=== PATIENT | female | born 1985 | race Hispanic/Latino ===

== ENCOUNTER 2017-03-03 12:01 | Emergency (ER) | payer BC ==
[2017-03-03 12:20] VITALS: BMI 39.8
[2017-03-03 12:54] LABS: BASO % 0.2 % (0.0-2.0); EOS % 0.3 % (0.0-4.0); HEMATOCRIT 33.1 % (34.0-47.0); LYMPH # 1.7 K/uL (1.0-4.3); LYMPH % 18.8 % (20.0-40.0); MEAN CELL VOLUME 87.6 fl (81.0-99.0); MEAN CORPUSCULAR HGB CONC 33.1 g/dL (33.0-37.0); MEAN PLATELET VOLUME 10.1 fl (7.2-11.7); MONO # 0.6 K/uL (0.0-0.8); MONO % 6.3 % (0.0-10.0); NEUT # 6.9 K/uL (1.8-7.0); NEUT % 74.4 % (50.0-75.0); NRBC % 0.1 % (0.0-0.0); RED CELL DISTRIBUTION WIDTH 13.9 % (11.5-14.5); WHITE BLOOD COUNT 9.2 K/uL (4.8-10.8)
--- NOTE | 2017-03-03 13:03 | OBHP ---
Datetime: 03/03/2017 12:20 IP Adm Impression: Term, intrauterine ; No Active Labor IP Admit Plan: Observation/Evaluation Admit Comment, IP Provider: 32yo G [id number] IUP at 37+w sent by PMD Dr Love for elevated BP. + swelling lower extremities. No WISDOM; no epigatrsic pain No CTX; no VB; +FM PNC: CP - APPT today 159/92 and last week 155/90 GBS+ PMH: denies PSH: elba NKA POBGYNH: no STD; spont Ab x 1 A: IUP at 37w 1wk Elevate BP GBS+ PLAN: check UA and pre-eclampis labs; monitor BP Pelvic Type - PN: Adequate Extremities - PN: Abnormal Abdomen - PN: Normal Back - PN: Normal Breast - PN: Not Done Lungs - PN: Normal Heart - PN: Normal Thyroid - PN: Normal Neurologic - PN: Normal HEENT - PN: Normal General - PN: Normal Presentation-Admit: Vertex IP Fetus A Comments: sono cephalic FHR - Baseline A Provider: 140 Comments, ACOG Physical Exam: ROS: General: no weakness; no fatigue HEENT: no WISDOM; no visual dist CV: no palpitations; no no CP GI: no N/V no diarhea : no F/U/D MS: No joint pain; + pedal edema IP Hx Assessment: The History has been Reviewed and is Current Vital Signs Provider: Reviewed; Within Normal Limits IP Chief Complaint: Signs/Symptoms Gestational HTN NICHD Variability Prov Fetus A: Moderate 6-25bpm NICHD Accel Fetus A IP Provider: 15X15 FHR Category Provider Fetus A: Category I NICHD Decel Fetus A IP Provider: None Genitourinary Exam: Normal DTRs - PN: Normal
[2017-03-03 13:19] LABS: ALB/GLOB RATIO 1.1 (1.0-2.1); ALKALINE PHOSPHATASE 184 U/L (38-126); ALT/SGPT 28 U/L (9-52); AST/SGOT 28 U/L (14-36); BILIRUBIN,TOTAL 0.4 mg/dl (0.2-1.3); BLOOD UREA NITROGEN 9 mg/dl (7-17); CALCIUM 9.7 mg/dL (8.4-10.2); CARBON DIOXIDE 21 mmol/L (22-30); CHLORIDE 107 mmol/L (98-107); GFR AFRICAN-AMERICAN > 60; GLUCOSE,RANDOM 91 mg/dL (65-105); POTASSIUM 4.3 MMOL/L (3.6-5.0); SODIUM 141 mmol/l (132-148); TOTAL PROTEIN 6.8 G/DL (6.3-8.2); URIC ACID 4.4 mg/Dl (2.2-7.5)
[2017-03-03 13:50] LABS: RBC URINE 3 /hpf (0-3); URINE BACTERIA RARE (<OCC); URINE BILIRUBIN NEGATIVE (NEGATIVE); URINE BLOOD NEGATIVE (NEGATIVE); URINE COLOR YELLOW (YELLOW); URINE GLUCOSE (UA) NEG (Normal); URINE KETONE NEGATIVE (NEGATIVE); URINE LEUKOCYTE ESTERASE MOD Leu/uL (Negative); URINE PROTEIN NEGATIVE (NEGATIVE); URINE UROBILINOGEN 0.2-1.0 mg/dL (0.2-1.0); WBC URINE 7 /hpf (0-5)
--- NOTE | 2017-03-03 15:37 | OBDCSUM ---
Datetime: 03/03/2017 15:01 Discharged to, Provider: Home Follow up at, Provider: in L_D Disch Instr Activity: Normal activity Disch Instr Diet: Regular Discharge Instructions, Provider: Specific instructions as noted Discharge Time: 03/03/2017 15:00 Follow up in weeks, Provider: 03-04-17 Disch Referrals: None Discharge Instruct Comment, Prov: pre-eclampsia warning Contraception discussed, Prov: Yes Discharge Comment, Provider: collect 24h urine...come back tmrw for BP check. Discharge Diagnosis Prov Other: Elevated BP
--- NOTE | 2017-03-03 15:37 | OBHP ---
Datetime: 03/03/2017 15:00 Admit Comment, IP Provider: Labs and BP rev'd...BP improved from earlier. N osigns of pre-eclampsia PLAN: discussion with pt. 24h urine collection; pre-eclampsia warning; came with mother and will be staying with her in . Her is flying in from a wedding tonight. Her questions answered.
== END 2017-03-03 15:20 | disposition home or self-care (01) ==
LOC: H.EROB2 12:01
DX: O47.03 False labor before 37 completed weeks of gestation, third trimester (principal); Z3A.37 37 weeks gestation of pregnancy; O13.3 Gestational [pregnancy-induced] hypertension without significant proteinuria, third trimester

== ENCOUNTER 2017-03-04 18:11 | Emergency (ER) | payer BC ==
[2017-03-03 12:20] VITALS: BMI 39.8
--- NOTE | 2017-03-04 19:07 | OBHP ---
Datetime: 03/04/2017 18:58 IP Adm Impression: Term, intrauterine IP Chief Complaint Other: elevated BP IP Admit Plan: Observation/Evaluation Admit Comment, IP Provider: 32yo G [id number] IUP at 37+w Hx elevated BP. She was seen yesterday at Dr Arboleda's office and sent in. She had BP which were WNL. + swelling lower extremities. No WISDOM; no e pigatrsic pain; No CTX; no VB; +FM PNC: CP - APPT yesterday 159/92 and last week 155/90 GBS+ PMH: denies PSH: elba NKA POBGYNH: no STD; spont Ab x 1 A: IUP at 37w+ Elevate BP GBS+ PLAN: 24h collection brady in and will check for pr/Cr/Cr clearance; monitor BP Pelvic Type - PN: Adequate Extremities - PN: Normal Abdomen - PN: Normal Back - PN: Normal Breast - PN: Not Done Lungs - PN: Normal Heart - PN: Normal Thyroid - PN: Normal Neurologic - PN: Normal HEENT - PN: Normal General - PN: Normal IP Hx Assessment: The History has been Reviewed and is Current Vital Signs Provider: Reviewed Genitourinary Exam: Normal DTRs - PN: Normal
[2017-03-05 02:52] VITALS: BP 129/82; PULSE 88; RESP 16; TEMP 98.6
--- NOTE | 2017-03-05 20:23 | OBHP ---
Datetime: 03/04/2017 20:16 IP Adm Impression: Term, intrauterine ; No Active Labor IP Admit Plan: Observation/Evaluation; Discharge home Admit Comment, IP Provider: 32-year-old at 37 weeks and 2 days gestational age presented to OB ED with 24-hour urine collection and for observation of blood pressure. Patient without complaints a t this time. Patient's 24-hour urine sent to laboratory. Urine volume only 600 mL. I discussed this w ith patient, and patient reported that she did not collect all of her urine over the 24-hour period. I discussed with patient importance of this test. And recommended for patient to complete 24-hour uri ne. Patient was observed here at OB ED and was found to be normotensive today. Patient discharged yoko e with labor precautions as well as preeclamptic precautions. Patient will return to OB ED tomorrow w ith 24-hour urine collection for evaluation. Past medical history none Past surgical history none Medications vitamins No known drug allergies Obstetrical history Social history no tobacco, no alcohol, no drugs. Assessment: 32-year-old at 37 weeks gestational age with possible gestational hypertension. Patient stab le at this time. All being inferior wall being reassuring at this time. Plan: Patient given instructions on 24-hour urine collection. Patient will return to OB ED tomorrow with 24-hour urine collection for evaluation. EGA AdmitDate IP: 37.1 Vital Signs Provider: Reviewed; Within Normal Limits IP Chief Complaint: Other
== END 2017-03-04 22:45 | disposition home or self-care (01) ==
LOC: H.EROB2 18:11
DX: O47.1 False labor at or after 37 completed weeks of gestation (principal); Z3A.37 37 weeks gestation of pregnancy

== ENCOUNTER 2017-03-06 10:10 | Emergency (ER) | payer BC ==
--- NOTE | 2017-03-06 13:00 | OBHP ---
Datetime: 03/06/2017 11:18 Admit Comment, IP Provider: 32yo G [id number] IUP at 37.3 w/ Hx elevated [id number] observed at appt las t week. She presents today for submission of 24hr urine. + swelling lower extremities. No WISDOM/scoto rahman/va disturbances; no epigatrsic/ruq pain; No CTX; no VB; +FM PNC: CP with dr ford. GBS+ PMH: denies PSH: elba NKA POBGYNH: no STD; spont Ab x 1 A: IUP at 37.3wks Elevate BP P: 24hr urine Addendum: 24 hour urine results discussed with Dr. Carroll The patient home Follow up Monday with Dr. Cuellar as scheduled Preeclamptic precautions kick counts preeclamptic precautions next few Extremities - PN: Normal Abdomen - PN: Normal Back - PN: Normal Lungs - PN: Normal Heart - PN: Normal Neurologic - PN: Normal HEENT - PN: Normal Comments, ACOG Physical Exam: 24 hour urine has 418 mg of protein Genitourinary Exam: Normal Datetime: 03/04/2017 20:16 EGA AdmitDate IP: 37.1
[2017-03-06 16:55] VITALS: BP 133/84; PULSE 91; TEMP 98; O2SAT 100
== END 2017-03-06 12:48 | disposition home or self-care (01) ==
LOC: H.EROB2 10:10 → H.EROB 10:10 → H.EROB2 12:48
DX: O13.3 Gestational [pregnancy-induced] hypertension without significant proteinuria, third trimester (principal); Z3A.37 37 weeks gestation of pregnancy

== ENCOUNTER 2017-03-10 16:32 | Inpatient (IN) | payer BC ==
[2017-03-10 18:14] VITALS: BMI 39.4
[2017-03-10] MEDS ORDERED: Lactated Ringer's 500 ML IV SCH (18:45)
[2017-03-10 19:17] LABS: BASO % 0.1 % (0.0-2.0); EOS % 0.4 % (0.0-4.0); HEMATOCRIT 30.9 % (34.0-47.0); LYMPH % 23.1 % (20.0-40.0); MEAN CELL VOLUME 87.3 fl (81.0-99.0); MEAN CORPUSCULAR HEMOGLOBIN 28.6 pg (27.0-31.0); MEAN CORPUSCULAR HGB CONC 32.7 g/dL (33.0-37.0); MEAN PLATELET VOLUME 11.1 fl (7.2-11.7); MONO # 0.7 K/uL (0.0-0.8); NEUT % 68.4 % (50.0-75.0); NRBC % 0.2 % (0.0-0.0); RED CELL DISTRIBUTION WIDTH 14.2 % (11.5-14.5); WHITE BLOOD COUNT 8.8 K/uL (4.8-10.8)
[2017-03-10 19:25] LABS: RBC URINE 3 /hpf (0-3); URINE BACTERIA RARE (<OCC); URINE BILIRUBIN NEGATIVE (NEGATIVE); URINE BLOOD NEGATIVE (NEGATIVE); URINE COLOR YELLOW (YELLOW); URINE GLUCOSE (UA) NEG (Normal); URINE KETONE NEGATIVE (NEGATIVE); URINE LEUKOCYTE ESTERASE MOD Leu/uL (Negative); URINE PROTEIN NEGATIVE (NEGATIVE); URINE UROBILINOGEN 0.2-1.0 mg/dL (0.2-1.0)
[2017-03-10 19:47] LABS: ALB/GLOB RATIO 1.1 (1.0-2.1); ALKALINE PHOSPHATASE 176 U/L (38-126); ALT/SGPT 28 U/L (9-52); AST/SGOT 27 U/L (14-36); BILIRUBIN,TOTAL 0.2 mg/dl (0.2-1.3); BLOOD UREA NITROGEN 8 mg/dl (7-17); CALCIUM 9.3 mg/dL (8.4-10.2); CARBON DIOXIDE 21 mmol/L (22-30); CHLORIDE 107 mmol/L (98-107); GFR AFRICAN-AMERICAN > 60; GLUCOSE,RANDOM 92 mg/dL (65-105); POTASSIUM 4.1 MMOL/L (3.6-5.0); SODIUM 138 mmol/l (132-148); TOTAL PROTEIN 6.3 G/DL (6.3-8.2); URIC ACID 5.1 mg/Dl (2.2-7.5)
[2017-03-10 19:56] LABS: WBC URINE 19 /hpf (0-5)
[2017-03-11] MEDS: Lactated Ringer's 1,000 ML IV SCH ×2 (00:01→06:54)
--- NOTE | 2017-03-11 09:31 | OBADHP ---
Datetime: 03/10/2017 19:25 IP Chief Complaint Other: Elevated Blood Pressures Admit Comment, IP Provider: Patient presents for direct admission for induction She is a at 38 wks gestation with recent hx of elevated blood pressures being brought in . Patient denies contractions, vaginal bleed. She denies spontaneous rupture of membranes. Reports goo d movement. Patient denies headaches blurred vision, spots in her vision, midepigastric or right upper quadran t pain, persistent nausea vomiting. She reports good movement. Care: Pt sees Dr. Arboleda at [facility]. Mothers blood pressures from most recent visits have been in the 150's systolic. Mother is GBS + and RH negative. Received Rhogam at 28 weeks . 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 History:Last pap smear 2015 normal PMHx: None PSurgHx: None Meds: PNV Allergies: NKDA Social: Denies smoking, alcohol, drugs Physical Exam: General: seen lying in bed comfortably; NAD HEENT: Mild facial edema, jaundice, or pallor Cardiac: RRR, no murmurs Pulm: Clear to auscultation bilaterally Abdomen: Gravid, NT, obese Extremities: +2 pedal edema Heart Rate:150, moderate variability, accelerations, no decelerations Abdominal US: Cephalic Presentation Labs: Blood type AB negative, RH negative, GBS+ (via Cx) , G/C negative, Hep B negative, HIV negative, RPR negative, Rubella Immune, Varicella Immune Assessment: IUP at 38 weeks gestation, not in active labor. Admitted for Induction of labor in the setting of elevated blood pressures. Plan: -Induction via Cervidil and monitor for progression of labor -Watch for signs of preeclampsia -Monitor Heart Rate, and Maternal Vital Signs -Ampicillin 2g for + GBS status at onset of labor -CBC, Type and Screen -UA, 24 Urine Protein, LDH, Uric Acid, Fibrinogen PTT, Liver Function Tests Addendum 8:27 pm -Cervidil placed at 8:00pm by Dr. Rossetos -Cervix long, closed, 0 % effaced. -4 station. OB hospitalist addendum: Patient seen and examined by me with. Agree with above assessment and plan following modifications : O: Lower extremity nonpitting +1 pedal edema. Labs normal impression: gestational hypertension plan admit for induction with Cervidil patient was discussed with Dr. AZAR. Pelvic Type - PN: Adequate Extremities - PN: Normal Abdomen - PN: Normal Back - PN: Normal Breast - PN: Normal Lungs - PN: Normal Heart - PN: Normal Thyroid - PN: Normal Neurologic - PN: Normal HEENT - PN: Normal General - PN: Normal FHR - Baseline A Provider: 130 Comments, ACOG Physical Exam: GBS + and RH negative. Vital Signs Provider: Reviewed IP Chief Complaint: Scheduled induction of labor; Other NICHD Variability Prov Fetus A: Moderate 6-25bpm NICHD Accel Fetus A IP Provider: 15X15 FHR Category Provider Fetus A: Category I NICHD Decel Fetus A IP Provider: None Dilatation, Provider: 0 Effacement, Provider: 0 Genitourinary Exam: Normal DTRs - PN: Normal EGA AdmitDate IP: 38.0 IP Adm Impression: Term, intrauterine IP Admit Plan: Admit to unit; Initiate labor induction protocol Datetime: 03/04/2017 18:58 IP Hx Assessment: The History has been Reviewed and is Current Datetime: 03/03/2017 12:20 Presentation-Admit: Vertex IP Fetus A Comments: sono cephalic
--- NOTE | 2017-03-11 12:23 | OBPN ---
Datetime: 03/11/2017 12:19 IP Progress Impression: Reassuring heart rate IP Procedures: Sterile Vag Exam IP Progress Plan: Continue present management; Induction Membranes, Provider: Intact Contraction Comments Provider: occasional FHR - Baseline A Provider: 130s IP Progress Note Comment: Continue cytotec for cervical ripening. Both MWB/FWB reassuring at this t jud. Plan discussed with patient and all patient questions answered. Vital Signs Provider: Reviewed; Within Normal Limits NICHD Accel Fetus A IP Provider: 15X15 FHR Category Provider Fetus A: Category I NICHD Variability Prov Fetus A: Moderate 6-25bpm Dilatation, Provider: FT Effacement, Provider: long Station, Provider: high NICHD Decel Fetus A IP Provider: None Datetime: 03/03/2017 12:20 IP Fetus A Comments: sono cephalic Presentation-Admit: Vertex
[2017-03-12] MEDS ORDERED: Oxytocin 30 units/LR 500ML 30 U/500 ML BAG IV ONE (02:00)
[2017-03-12] MEDS: Lactated Ringer's 1,000 ML IV SCH ×3 (06:00→19:53)
[2017-03-12] MEDS: Ampicillin 2 GM in Sodium Chloride 0.9% 100 ML IVPB PRN ×3 (06:13→18:13)
[2017-03-12] MEDS ORDERED: Lactated Ringer's 1,000 ML IV SCH (06:15)
--- NOTE | 2017-03-12 09:57 | OBPN ---
Datetime: 03/12/2017 09:51 IP Progress Impression: Reassuring heart rate IP Procedures: Sterile Vag Exam IP Progress Plan: Continue present management; Induction Contraction Comments Provider: q2-3min FHR - Baseline A Provider: 120s IP Progress Note Comment: Continue pitocin augmentation. Both MWB/FWB reassuring at this time. Vital Signs Provider: Reviewed; Within Normal Limits NICHD Accel Fetus A IP Provider: 15X15 FHR Category Provider Fetus A: Category I NICHD Variability Prov Fetus A: Moderate 6-25bpm Dilatation, Provider: FT Effacement, Provider: 50 Station, Provider: -3 NICHD Decel Fetus A IP Provider: None
[2017-03-12] MEDS ORDERED: Nalbuphine 20 mg/ml Inj (1 ml) IVP PRN (13:39)
[2017-03-12] MEDS ORDERED: Nalbuphine 20 mg/ml Inj (1 ml) ONE (13:42)
--- NOTE | 2017-03-12 14:13 | OBPN ---
Datetime: 03/12/2017 14:06 IP Progress Impression: Normal progression of labor IP Informed Consent Obtain: Vaginal Delivery IP Procedures: Sterile Vag Exam IP Progress Plan: Continue present management Contraction Comments Provider: q 3-7 mins FHR - Baseline A Provider: 125 IP Progress Note Comment: Patient evaluated, comfortable. VE=3-4/50/-3 [id number] mod farzaneh, +accels, no decels TOCO = ctxng q 3-7 mins, Pitocin @ 4 mu/min A/P 1. Discussed plan of care with patient. Cook's balloon placed into patient, 80/80ml of saline inse rted before. Patient given Nubain before insertion of Cook's 2. CEFM and TOCO 3. COntinue Pitocin for augmentation 4. Re-evaluate as needed Vital Signs Provider: Reviewed; Within Normal Limits NICHD Accel Fetus A IP Provider: 15X15 NICHD Variability Prov Fetus A: Moderate 6-25bpm Dilatation, Provider: 3-4 Effacement, Provider: 50 Station, Provider: -3 NICHD Decel Fetus A IP Provider: None
[2017-03-13] MEDS: Ampicillin 2 GM in Sodium Chloride 0.9% 100 ML IVPB PRN ×2 (00:15→06:20)
[2017-03-13] MEDS: Lactated Ringer's 1,000 ML IV SCH (04:11)
[2017-03-13] MEDS ORDERED: Oxytocin 30 units/LR 500ML 30 U/500 ML BAG IV ONE (09:13)
[2017-03-13] MEDS ORDERED: ceFAZolin 2 GM in Sodium Chloride 0.9% 100 ML IVPB SCH (09:15)
--- NOTE | 2017-03-13 09:17 | OBPN ---
Datetime: 03/13/2017 08:48 IP Progress Impression: Arrest of dilatation/descent IP Informed Consent Obtain: Section Delivery IP Procedures: Sterile Vag Exam IP Progress Plan: Deliver- Section Contraction Comments Provider: Irregular FHR - Baseline A Provider: 135 IP Progress Note Comment: Patient evaluated, not feeling strong contractions. Cook's balloon feel ou t overnight. Patient has been 6cm dilated for over 6 hours with inadequate contractions. Pitocin maxe d out at 20 mu/min. Patient counseled at this point she is an arrest of labor, would advise to procee d with for arrest. Advised patient of risk/benefits of including risk of bleeding , infection, damage to surrounding organs sucha as bladder, bowel, ureters, uterus. Patient signed in formed on Vital Signs Provider: Reviewed; Within Normal Limits NICHD Accel Fetus A IP Provider: 15X15 NICHD Variability Prov Fetus A: Moderate 6-25bpm Dilatation, Provider: 6 Effacement, Provider: 50 Station, Provider: -3 NICHD Decel Fetus A IP Provider: None
[2017-03-13] MEDS ORDERED: ePHEDrine 50 mg/ml Inj ONE (09:52)
[2017-03-13] MEDS ORDERED: Morphine 1 mg/ml preservative-free Inj(Duramorph) ONE (09:53)
[2017-03-13] MEDS ORDERED: Phenylephrine 10 mg/ml Inj ONE (09:53)
[2017-03-13] MEDS ORDERED: Bisacodyl 5mg EC Tab PO PRN (12:05)
--- NOTE | 2017-03-13 12:16 | OBDS ---
DELIVERY PERSONNEL Nurse Adult Services Librarian Certified: diego Delivery Doctor: Aditya Arboleda MD Scrub Nurse: Lena Chávez/[employer] Records Clerk: Keira Agrawal RN Anesthesiologist: Roney Nash MD Front End Loader Operator: na MATERNAL INFORMATION Delivery Anesthesia: Spinal Other Maternal Complications: failed IOL;had elevated BP -Pre eclamptia work up WNL Provider Comments: Primary low flap transverse section. Patient delivered viable male with Apgars of 9 and 9 at one and 5 minutes respectively. Nor mal uterus, normal tubes and ovaries bilaterally. History of blood loss 800 mL IV fluids 2000 mL lactated Ringer's Urine output 100 mL of clear urine complications Patient tolerated procedure well. LABOR SUMMARY EDC: 03/27/2017 00:00 No. Babies in Womb: 1 Attempted: No LABOR INFORMATION Reason for Induction: Gest. HTN/PreEclampsia/Eclampsia Cervical Ripening Agents: Agarwal Balloon Group B Beta Strep: Positive Steroids Given: None Reason Steroids Not Administered: Not Applicable STAGES OF LABOR Stage 3 hrs: 0 Stage 3 min: 1 CSECTION DELIVERY Primary Indication: Prolonged Active Phase Secondary Indication: Secondary Arrest of Dilatation Labor: Labor Elective: Nonelective CSection Incision: Lower Uterine Transverse Uterine Closure: Double-layer closure BABY A INFORMATION Delivery Date/Time: 03/13/2017 11:21 Method of Delivery: Born in Route : No : N/A Forceps: N/A Vacuum Extraction: N/A Shoulder Dystocia : No SHOULDER DYSTOCIA BABY A Delivery Date/Time: 03/13/2017 11:21 PRESENTATION/POSITION BABY A Presentation: Cephalic Breech Presentation: N/A PLACENTA INFORMATION BABY A Placenta Delivery Time : 03/13/2017 11:22 Placenta Method of Delivery: Expressed Placenta Status: Delivered SCORES BABY A Heart Rate 1 min: >100 bpm Resp Effort 1 min: Good Cry Reflex Irritability 1 min: Cough or Sneeze or Pulls Away Muscle Tone 1 min: Active Motion Color 1 min: Body [place], Extremities Blue Resuscitation Effort 1 min: Tactile Stimulation SCORE 1 MIN: 9 Heart Rate 5 min: >100 bpm Resp Effort 5 min: Good Cry Reflex Irritability 5 min: Cough or Sneeze or Pulls Away Muscle Tone 5 min: Active Motion Color 5 min: Body [place], Extremities Blue Resuscitation Effort 5 min: Tactile Stimulation SCORE 5 MIN: 9 INFANT INFORMATION BABY A Gestational Age at Delivery: 38.0 Gestational Status: Term Infant Outcome : Liveborn Condition : Stable Infant Sex: Male IDENTIFICATION/MEDS BABY A ID Band Number: [id number] ID Band Location: Left Leg; Left Arm CORD INFORMATION BABY A No. Cord Vessels: 3 Nuchal Cord : N/A Cord Blood Taken: Yes Infant Suction: Mouth; Nose ASSESSMENT BABY A Infant Complications: None Physical Findings at Delivery: Within Normal Limits Infant Respirations: Grunting Lottery Manager/ALS Called : No Infant Care By: /Sundar Germain/Sundar Boone Transferred To: Nursery
[2017-03-13] MEDS ORDERED: Lactated Ringer's 1,000 ML IV SCH (14:45)
[2017-03-13] MEDS ORDERED: Oxycodone/Acetaminophen 5/325 mg Tab PO PRN (21:47)
[2017-03-14 06:11] LABS: HEMATOCRIT 28.1 % (34.0-47.0); MEAN CELL VOLUME 87.9 fl (81.0-99.0); MEAN CORPUSCULAR HEMOGLOBIN 28.8 pg (27.0-31.0); MEAN CORPUSCULAR HGB CONC 32.7 g/dL (33.0-37.0); RED CELL DISTRIBUTION WIDTH 14.6 % (11.5-14.5); WHITE BLOOD COUNT 9.2 K/uL (4.8-10.8)
[2017-03-14] MEDS ORDERED: Influenza Vaccine 18yr & older 0.5 ML/45 MCG SYR IM ONE (09:00)
[2017-03-14] MEDS: Oxycodone/Acetaminophen 5/325 mg Tab PO PRN ×2 (10:00→23:29)
--- NOTE | 2017-03-15 08:00 | OBPPN ---
Datetime: 03/15/2017 07:56 PP Pain Prov: Within normal limits PP Nausea Prov: Denies PP Flatus Prov: Yes PP BM Prov: Yes PP Abdomen/Uterus Prov: Normal PP Lochia Prov: Normal PP C/S Incision Prov: Normal PP Progress Prov: Not Applicable PP Comments Phys Exam Prov: Incision w/ steri strips PP Impression Prov: Normal progression PP Plan Prov: Continue present management; Discharge PP Progress Note Prov: POD 2 s/p Primary c/s, doing well, bottle feeding Continue current management Vital Signs Provider PP: Reviewed
--- NOTE | 2017-03-15 08:36 | OBPPN ---
Datetime: 03/14/2017 08:15 PP Pain Prov: Within normal limits PP Nausea Prov: Denies PP Flatus Prov: Yes PP Breasts Prov: Normal PP Heart Prov: Normal PP Lungs Prov: Normal PP Abdomen/Uterus Prov: Normal PP Lochia Prov: Normal PP Vulva/Perineum Prov: Normal PP CVA Tenderness Prov: Normal PP Extremities Prov: Normal PP Comments Phys Exam Prov: Incision clean, dry, intact No deep Tenderness bilaterally PP Impression Prov: Normal progression PP Plan Prov: Continue present management PP Progress Note Prov: Day #1 s/p 1'C/S recovering well OOB/ambulate CBC Pain control tobar out regular diet IP PP Procedures: None Vital Signs Provider PP: Reviewed; Within Normal Limits
[2017-03-16 17:22] VITALS: BP 144/100; PULSE 73; RESP 19; TEMP 98.4; O2SAT 99
--- NOTE | 2017-03-17 08:15 | OBDCSUM ---
Datetime: 03/16/2017 11:43 Discharge Instructions, Provider: Specific instructions as noted Discharge Diagnosis, Provider: Term Delivered Contraception discussed, Prov: No Discharge Comment, Provider: Impression postop day #3 for delivery; gestational hypertension with blood pressures elevated more today than prior 2 days-? May be secon yfn to taking of Motrin. Plan: GC and Motrin. Patient advised to avoid Motrin and other NSAIDs due to possible side effect of hyp ertension Rx labetalol 100 mg 1 by mouth twice a day Follow-up within [address] Light for incision check and blood pressures. Preeclamptic precautions. Rx for iron sulfate one daily, Senokot S when necessary constipation, Percocet 5/325 for pain april ent understands this can be a tic dictating it to take sparingly.
--- NOTE | 2017-03-17 08:15 | OBPPN ---
Datetime: 03/17/2017 08:07 PP Pain Prov: Within normal limits PP Nausea Prov: Denies PP Flatus Prov: Yes PP BM Prov: Yes PP Breasts Prov: Normal PP Heart Prov: Normal PP Lungs Prov: Normal PP Abdomen/Uterus Prov: Normal PP Lochia Prov: Normal PP CVA Tenderness Prov: Not Done PP Extremities Prov: Normal PP C/S Incision Prov: Normal PP Impression Prov: Induced Hypertension PP Plan Prov: Discharge PP Progress Note Prov: s:no c/o; denies headaches blurred vision spots in her vision right upper montrell drant or midepigastric pain. States has been primarily taking Motrin for pain. Is planning to attempt breast-feeding and will use breast pump at home. The remaining in nursery and not being discharged today. Impression postop day #3 for delivery; gestational hypertension with blood pressures elevated more today than prior 2 days-? May be secon yfn to taking of Motrin. Plan: GC and Motrin. Patient advised to avoid Motrin and other NSAIDs due to possible side effect of hyp ertension Rx labetalol 100 mg 1 by mouth twice a day Follow-up within [address] Light for incision check and blood pressures. Preeclamptic precautions. Rx for iron sulfate one daily, Senokot S when necessary constipation, Percocet 5/325 for pain april ent understands this can be a tic dictating it to take sparingly. IP PP Procedures: None Vital Signs Provider PP: Reviewed Vital Signs Provider Details PP: 140-150/9--100
== END 2017-03-16 12:25 | disposition home or self-care (01) | DRG 766 ==
LOC: H.EROB2 16:32 → H.L&D 16:46 → H.EROB2 18:19 → H.OB/GYN 03-13 15:37
PROVIDERS: ADMIT Obstetrics & Gynecology; ATTEND Obstetrics & Gynecology
PROC: 4A1HXCZ Monitoring of Products of Conception, Cardiac Rate, External Approach (ICD-10-PCS; 2017-03-10)
PROC: 10D00Z1 Extraction of Products of Conception, Low, Open Approach (ICD-10-PCS; principal; 2017-03-13)
DX: O13.4 Gestational [pregnancy-induced] hypertension without significant proteinuria, complicating childbirth (principal); K59.00 Constipation, unspecified; Z37.0 Single live birth; O62.0 Primary inadequate contractions; O62.1 Secondary uterine inertia; Z3A.38 38 weeks gestation of pregnancy